=== PATIENT | female | born 1955 | race Two or more races ===

== ENCOUNTER 2023-08-06 11:18 | Inpatient (IN) | payer MEDICARE, MEDICAID ==
[~2023-08-06] VITALS: Ht 170.2 cm; Wt 88.9 kg
[2023-08-06] MEDS ORDERED: levothyroxine (11:25)
[2023-08-06] MEDS ORDERED: simvastatin (11:25)
[2023-08-06 15:27] LABS: BASOPHILS % 0.5 % (0.0-2.0); EOSINOPHILS % 0.2 % (0.0-5.0); HEMATOCRIT. 38.4 % (36.0-48.0); HEMOGLOBIN. 12.7 g/dL (12.0-16.0); LYMPHOCYTES % 19.3 % (20.0-50.0); MEAN CORPUSCULAR HEMOGLOBIN 31.4 pg (28.0-32.0); MEAN CORPUSCULAR HGB CONC 33.1 g/dL (31.0-37.0); MEAN PLATELET VOLUME 8.9 fl (7.4-10.4); MONOCYTES % 4.5 % (2.0-8.0); NEUTROPHILS % 75.5 % (40.0-76.0); PLATELET 236 x1000/uL (130-400); RED BLOOD CELL COUNT 4.04 mill/uL (4.2-5.4); RED CELL DISTRIBUTION WIDTH 13.6 % (11.6-14.6); WHITE BLOOD COUNT 6.6 x1000/uL (4.5-11.0)
[2023-08-06 15:43] LABS: ALANINE AMINOTRANSFERASE 10 IU/L (10-49); ALBUMIN 4.1 g/dL (3.2-4.8); ASPARTATE AMINOTRANSFERASE 20 IU/L (<34); BILIRUBIN TOTAL 0.6 mg/dL (0.1-1.0); CALCIUM 9.2 mg/dL (8.7-10.4); CARBON DIOXIDE 25 mEq/L (21-32); CHLORIDE 106 mEq/L (98-107); CREATININE 0.7 mg/dL (0.6-1.0); GLUCOSE 190 mg/dL (70-105); POTASSIUM 3.9 mEq/L (3.5-5.1); PROTEIN TOTAL 6.8 g/dL (6.0-8.3); SODIUM 138 mEq/L (136-145)
[2023-08-06 16:09] LABS: UREA NITROGEN BLOOD < 5 mg/dL (9-23)
[2023-08-06 17:48] LABS: TROPONIN I HIGH SENSITIVITY 1057 ng/L (3.0-34)
[2023-08-06 18:00] VITALS: BP 143/77; PULSE 63; RESP 20; TEMP 98.8
[2023-08-06] MEDS ORDERED: OLME20TA22 MT (18:49)
[2023-08-06] MEDS ORDERED: BACL-141 MT (18:49)
[2023-08-06] MEDS ORDERED: LEVO100T9 MT (18:49)
[2023-08-06] MEDS ORDERED: METF-414 MT (18:49)
[2023-08-06 20:00] VITALS: BP 137/75; PULSE 64; RESP 19; TEMP 97.1
[2023-08-06 20:23] LABS: HEPATITIS B SURFACE ANTIGEN NEGATIVE (Negative); HEPATITIS C AB NON REACTIVE (Neg) (Negative)
[2023-08-06 23:07] LABS: TROPONIN I HIGH SENSITIVITY 4494 ng/L (3.0-34)
[2023-08-06] MEDS ORDERED: DIPHENHYDRAMINE 50MG/ML VIAL IV PRN (23:15)
[2023-08-06] MEDS ORDERED: MAGNESIUM/ALUMINUM HYDROXIDE/SIMETHICONE 30ML UDC PO PRN (23:15)
[2023-08-06] MEDS ORDERED: ACETAMINOPHEN 325MG TABLET PO PRN ×2 (23:15)
[2023-08-06] MEDS ORDERED: MORPHINE SULFATE 2 MG/ML CPJ (NOT FOR IM USE) IV PRN (23:15)
[2023-08-06] MEDS ORDERED: ZOLPIDEM TARTRATE 5MG TABLET PO PRN (23:15)
[2023-08-06] MEDS ORDERED: CLONIDINE 0.1MG TABLET PO PRN (23:15)
[2023-08-06] MEDS ORDERED: IBUPROFEN 600MG TABLET PO PRN (23:15)
[2023-08-06] MEDS ORDERED: DEXTROSE 50% WATER 50ML SYRINGE IV PRN (23:15)
[2023-08-06] MEDS ORDERED: ONDANSETRON HCL 4MG/2ML INJ IV PRN (23:15)
[2023-08-06] MEDS ORDERED: ENOXAPARIN 100MG/ML SYR SUBCUT NR (23:30)
[2023-08-06] MEDS: ASPIRIN 81MG EC TABLET PO SCH (23:43)
[2023-08-06] MEDS: CLOPIDOGREL 75MG TABLET PO SCH (23:43)
[2023-08-07] VITALS: BP 124/73; PULSE 59; RESP 16; TEMP 97.1
[2023-08-07] MEDS: SODIUM CHLORIDE 0.45% 1,000 ML IV SCH ×2 (00:48→15:23)
[2023-08-07] MEDS ORDERED: MORPHINE SULFATE 2 MG/ML CPJ (NOT FOR IM USE) IV PRN (03:15)
[2023-08-07 04:00] VITALS: BP 108/69; PULSE 62; PULSE 82; RESP 19; TEMP 97.3; TEMP 97.5
[2023-08-07] MEDS: SODIUM CHLORIDE 0.9% INJ 3ML FLUSH IVF SCH ×3 (06:13→21:23)
[2023-08-07 06:46] LABS: PROTHROMBIN TIME 11.2 sec (9.6-11.0)
[2023-08-07] MEDS: LEVOTHYROXINE SODIUM 100MCG TABLET PO SCH (07:40)
[2023-08-07 08:00] VITALS: BP 112/70; PULSE 64; RESP 20; TEMP 98.2
[2023-08-07] MEDS ORDERED: METFORMIN HCL 500MG TABLET PO SCH (08:10)
[2023-08-07] MEDS: INSULIN LISPRO 100 UNITS/ML SUBCUT SCH ×4 (08:10→21:00)
[2023-08-07 08:13] LABS: TROPONIN I HIGH SENSITIVITY 19562 ng/L (3.0-34)
[2023-08-07] MEDS: BLOOD SUGAR DIAGNOSTIC STRIP TEST SCH ×3 (08:21→21:00)
[2023-08-07] MEDS: ASPIRIN 81MG EC TABLET PO SCH (08:48)
[2023-08-07] MEDS: CLOPIDOGREL 75MG TABLET PO SCH (08:48)
[2023-08-07] MEDS ORDERED: LOSARTAN 50 MG TABLET PO SCH (09:00)
[2023-08-07] MEDS ORDERED: ENOXAPARIN 40MG/0.4ML SYR SUBCUT SCH (09:00)
[2023-08-07] MEDS: ENOXAPARIN 100MG/ML SYR SUBCUT SCH ×2 (09:00→21:00)
[2023-08-07] MEDS ORDERED: IODIXANOL 320MG/ML 100 ML BOTTLE IV ONE ×3 (09:09→12:15)
[2023-08-07] MEDS ORDERED: LIDOCAINE HCL/PF 1% 10 MG/ML 5ML VIAL ONE (09:09)
[2023-08-07] MEDS ORDERED: HEPARIN 1000 UNITS/ML 10ML ONE ×3 (09:09→12:15)
[2023-08-07] MEDS ORDERED: DIPHENHYDRAMINE 50MG/ML VIAL ONE ×2 (09:09→09:30)
[2023-08-07] MEDS ORDERED: VERAPAMIL HCL 2.5 MG/1 ML 2ML VIAL IV ONE (09:26)
[2023-08-07] MEDS ORDERED: FENTANYL CITRATE/PF 50MCG/ML 2ML VIAL ONE ×2 (09:30→12:16)
[2023-08-07] MEDS ORDERED: MIDAZOLAM HCL 2 MG/2 ML VIAL ONE ×3 (09:30→12:16)
[2023-08-07] MEDS ORDERED: HYDRALAZINE 20MG/ML VIAL ONE (09:55)
[2023-08-07] MEDS ORDERED: NALOXONE HCL 0.4MG/ML VIAL IV PRN (10:15)
[2023-08-07] MEDS ORDERED: CLOPIDOGREL 75MG TABLET ONE (11:33)
[2023-08-07] MEDS ORDERED: ACETAMINOPHEN 325MG TABLET PO PRN (11:45)
[2023-08-07] MEDS ORDERED: ATROPINE SULFATE 1MG/10ML SYR IV PRN (11:45)
[2023-08-07 12:07] VITALS: BP 131/73; PULSE 62; RESP 18; TEMP 98.2
[2023-08-07] MEDS ORDERED: LIDOCAINE HCL 1% 10 MG/ML 10ML VIAL ONE (12:15)
[2023-08-07 16:00] VITALS: BP 140/87; PULSE 68; RESP 17; TEMP 98.3
[2023-08-07 18:00] LABS: TROPONIN I HIGH SENSITIVITY 33061 ng/L (3.0-34)
[2023-08-07 20:00] VITALS: BP 152/87; PULSE 55; RESP 17; TEMP 99.2
[2023-08-08] VITALS: BP 126/104; RESP 18; TEMP 99
[2023-08-08 04:00] VITALS: BP 138/87; PULSE 63; RESP 18; TEMP 97.8
[2023-08-08] MEDS: LEVOTHYROXINE SODIUM 100MCG TABLET PO SCH (05:43)
[2023-08-08] MEDS: BLOOD SUGAR DIAGNOSTIC STRIP TEST SCH ×4 (05:43→21:00)
[2023-08-08] MEDS: SODIUM CHLORIDE 0.9% INJ 3ML FLUSH IVF SCH ×3 (05:43→21:10)
[2023-08-08] MEDS: INSULIN LISPRO 100 UNITS/ML SUBCUT SCH ×4 (05:56→21:00)
[2023-08-08 07:21] LABS: BASOPHILS % 0.4 % (0.0-2.0); EOSINOPHILS % 0.3 % (0.0-5.0); HEMATOCRIT. 35.5 % (36.0-48.0); HEMOGLOBIN. 11.9 g/dL (12.0-16.0); LYMPHOCYTES % 20.5 % (20.0-50.0); MEAN CORPUSCULAR HEMOGLOBIN 31.8 pg (28.0-32.0); MEAN CORPUSCULAR HGB CONC 33.6 g/dL (31.0-37.0); MEAN CORPUSCULAR VOLUME 94.7 fL (81.0-99.0); MEAN PLATELET VOLUME 8.8 fl (7.4-10.4); MONOCYTES % 8.7 % (2.0-8.0); NEUTROPHILS % 70.1 % (40.0-76.0); PLATELET 215 x1000/uL (130-400); RED BLOOD CELL COUNT 3.75 mill/uL (4.2-5.4); RED CELL DISTRIBUTION WIDTH 13.4 % (11.6-14.6); WHITE BLOOD COUNT 8.8 x1000/uL (4.5-11.0)
[2023-08-08 07:58] LABS: CALCIUM 8.9 mg/dL (8.7-10.4); CARBON DIOXIDE 24 mEq/L (21-32); CHLORIDE 105 mEq/L (98-107); CHOLESTEROL 178 mg/dL (<200); CREATININE 0.6 mg/dL (0.6-1.0); GLUCOSE 162 mg/dL (70-105); HDL CHOLESTEROL 42 mg/dL (>65); LDL CHOLESTEROL 114 mg/dL (5-100); POTASSIUM 4.1 mEq/L (3.5-5.1); SODIUM 139 mEq/L (136-145); TRIGLYCERIDE 121 mg/dL (0-150); UREA NITROGEN BLOOD 6 mg/dL (9-23)
[2023-08-08 08:00] VITALS: BP 115/68; PULSE 64; RESP 15; TEMP 98.5
[2023-08-08] MEDS: SODIUM CHLORIDE 0.45% 1,000 ML IV SCH (08:00)
[2023-08-08] MEDS: ASPIRIN 81MG EC TABLET PO SCH (08:36)
[2023-08-08] MEDS: METOPROLOL SUCCINATE 50MG ER TABLET PO SCH ×2 (08:36→09:00)
[2023-08-08] MEDS: CLOPIDOGREL 75MG TABLET PO SCH (08:36)
[2023-08-08] MEDS: ENOXAPARIN 100MG/ML SYR SUBCUT SCH ×2 (09:00→21:03)
[2023-08-08] MEDS ORDERED: CLOPIDOGREL 75MG TABLET PO SCH (09:00)
[2023-08-08 15:05] VITALS: BP 127/90; PULSE 73; RESP 17; TEMP 98.3
[2023-08-08 20:00] VITALS: BP 118/70; PULSE 69; RESP 25; TEMP 99.4
[2023-08-09] VITALS: BP 121/76; PULSE 68; RESP 18; TEMP 99.5
[2023-08-09 04:00] VITALS: BP 108/73; PULSE 70; RESP 19; TEMP 99.2
[2023-08-09 05:36] VITALS: BP 112/80; PULSE 70; TEMP 99.2; O2SAT 98
[2023-08-09] MEDS: SODIUM CHLORIDE 0.9% INJ 3ML FLUSH IVF SCH (06:00)
[2023-08-13 09:48] LABS: TROPONIN I HIGH SENSITIVITY 187 ng/L (3.0-34)
== END 2023-08-09 06:45 | disposition home or self-care (01) | DRG 321 ==
LOC: ER 11:18 → 7WST 16:18 → EDBEDREQ 16:35 → 3WST 08-07 12:02
PROVIDERS: ADMIT Internal Medicine; ATTEND Internal Medicine
PROC: 027037Z Dilation of Coronary Artery, One Artery with Four or More Drug-eluting Intraluminal Devices, Percutaneous Approach (ICD-10-PCS; principal; 2023-08-07)
PROC: 4A023N7 Measurement of Cardiac Sampling and Pressure, Left Heart, Percutaneous Approach (ICD-10-PCS; 2023-08-07)
PROC: B211YZZ Fluoroscopy of Multiple Coronary Arteries using Other Contrast (ICD-10-PCS; 2023-08-07)
DX: I21.4 Non-ST elevation (NSTEMI) myocardial infarction (principal); I25.10 Atherosclerotic heart disease of native coronary artery without angina pectoris; E03.9 Hypothyroidism, unspecified; I10 Essential (primary) hypertension; E11.9 Type 2 diabetes mellitus without complications; E78.00 Pure hypercholesterolemia, unspecified; K21.9 Gastro-esophageal reflux disease without esophagitis; M19.09 Primary osteoarthritis, other specified site; Z79.82 Long term (current) use of aspirin; Z79.899 Other long term (current) drug therapy; Z83.3 Family history of diabetes mellitus; Z90.710 Acquired absence of both cervix and uterus; Z79.4 Long term (current) use of insulin
CPT/HCPCS: 36415; 71045; 80048; 80053; 80061; 82962; 83036; 83880; 84443; 84484; 85025; 85347; 86705; 87340; 92928; 93005; 93306; 93308; 93458; 99285; C1725; C1769; C1874; C1887; C1893; J0360; J1200; J1644; J1650; J1815; J2250; J2405; J3010; J3490; Q9967

== ENCOUNTER → 2024-07-23 | Outpatient (CLI) | payer MEDICARE, MEDICAID ==
[~2024-07-23] MED LIST: ASPI-1497 PO; ATOR40TA70 MT; BACL-141 MT; CLOP-31 PO; COR6 MT; LEVO100T9 MT; METF-414 MT; OLME20TA68 PO
== END | disposition home or self-care (01) ==
LOC: PVL 08:56
PROVIDERS: ATTEND Internal Medicine
DX: R22.31 Localized swelling, mass and lump, right upper limb (principal)
CPT/HCPCS: 76881; 93922